=== PATIENT | male | born 1960 | race Caucasian/White ===

== ENCOUNTER 2024-12-19 14:42 | Outpatient (CLI) | payer OTHER | END 2024-12-19 14:44 | disposition home or self-care (01) | LOC: MRI 14:42 | PROVIDERS: ATTEND Orthopaedic Surgery | DX: M66.361 Spontaneous rupture of flexor tendons, right lower leg (principal) | CPT/HCPCS: 73721 ==

== ENCOUNTER 2024-12-24 06:00 | Day surgery (SDC) | payer OTHER ==
[2024-12-19 14:33] LABS: BASO % 0.2 % (0.1-1.2); EOS # 0.06 (0.04-0.54); EOS % 0.6 % (0.7-7.0); LYMPH # 2.06 (1.18-3.74); LYMPH % 21.5 % (19.3-53.1); MEAN PLATELET VOLUME 8.90 fl (9.4-12.4); MONO # 0.54 (0.24-0.82); MONO % 5.6 % (4.7-12.5); NEUT # 6.84 (1.56-6.13); NEUT % 71.6 % (34.0-71.1); RED CELL DISTRIBUTION WIDTH 12.8 % (11.6-14.4)
[2024-12-19 14:36] LABS: URINE APPEARANCE Clear; URINE BILIRRUBIN Negative (NEGATIVE); URINE BLOOD Negative; URINE COLOR Yellow; URINE KETONE Negative (NEGATIVE); URINE LEUKOCYTE Negative; URINE NITRATE Negative; URINE PROTEIN Negative (NEGATIVE); URINE UROBILINOGEN 0.2 E.U./dl
[2024-12-19 14:40] LABS: URINE BACTERIA 11.9 uL (0.0-1933); URINE EPITHELIAL CELLS 2.7 uL (0.0-38.8); URINE RBC 2.0 uL (0.0-20.8); URINE WBC 2.1 uL (0.0-23.2)
[2024-12-19 14:44] VITALS: BP 121/69
[2024-12-19 15:03] LABS: ALT/SGPT 62.0 U/L (12-78); AST/SGOT 27.0 U/L (15-37); BILIRUBIN TOTAL 0.7 mg/dL (0.3-1.2); BUN CREA RATIO 27.0 (7.0-25.0); CREATININE SERUM 0.77 mg/dL (0.70-1.30); GFR 101.39; GLOBULINA 3.6 G/DL (2.4-3.5); GLUCOSE FASTING 86.0 mg/dL (65-100); OSMOLALITY SERUM 285.0 MOSM/KG (275-295)
[2024-12-19 15:23] LABS: INR 0.97
[2024-12-19 15:29] LABS: URINE CAST 0.00 uL (0.0-1.40); URINE GLUCOSE >=1000 MG/DL (NEGATIVE)
[2024-12-19 15:56] LABS: COL ADP 74.0 SECONDS (56-102); COL EPI 211.0 SECONDS (82-175)
[~2024-12-24 06:00] MED LIST: AVAPRO300 MG PO; CIALIS5 MG PO; CRESTOR40 MG; HUMALOG100 UNIT/2; JARDIANCE25 MG PO; LANTUS SOL100 UNIT/1; LYRICA150 MG PO; METFORMIN HCL750 MG PO
[2024-12-24] MEDS ORDERED: CEFAZOLIN SODIUM 1,000 MG VIAL ONE (07:14)
[2024-12-24] MEDS ORDERED: BUPIVACAINE HCL/MPF 0.5% 30ML VIAL ONE (07:19)
[2024-12-24] MEDS ORDERED: CEFOXITIN SODIUM 2,000 MG VIAL IV ONE (07:20)
[2024-12-24] MEDS ORDERED: SUGAMMADEX SODIUM 200 MG/2 ML VIAL IV ONE (09:56)
== END 2024-12-24 13:20 | disposition home or self-care (01) ==
LOC: CIR.AMB 06:00
PROVIDERS: ATTEND Orthopaedic Surgery
DX: M66.871 Spontaneous rupture of other tendons, right ankle and foot (principal); D16.31 Benign neoplasm of short bones of right lower limb